=== PATIENT | male | born 1970 | race Two or more races ===

== ENCOUNTER 2020-08-31 14:08 | Inpatient (IN) | payer OTHER, SELFPAY ==
[~2020-08-31] VITALS: Ht 182.9 cm; Wt 91.7 kg
[2020-08-31] MEDS ORDERED: DEXAMETHASONE 4 MG TABLET ONE (14:56)
--- NOTE | 2020-08-31 14:58 | NUR ---
BREAK RN: PT REPORTS LEFT SIDED CHEST PAIN X2 DAYS, WORSE WITH DEEP BREATHS. 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 SINUS TACH NOTED. PT DENIES HX OF HTN. 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 REPORT GIVEN TO PRASHANTH PRIMARY RN.
[2020-08-31] MEDS ORDERED: DEXAMETHASONE 4 MG TABLET PO ONE (15:00)
[2020-08-31] MEDS ORDERED: LABETALOL 5MG/ML, 20ML ONE (15:14)
[2020-08-31] MEDS: LABETALOL 5MG/ML, 20ML IVPush PRN ×5 (15:17→16:28)
[2020-08-31 15:22] LABS: BASOPHILS % (AUTO) 1 % (0-1); EOSINOPHILS % (AUTO) 1 % (1-7); LYMPHOCYTES % (AUTO) 27 % (22-44); MEAN CORPUSCULAR HEMOGLOBIN 32.3 pg (27.5-34.5); MEAN PLATELET VOLUME 9.7 fL (7.4-10.4); MONOCYTES % (AUTO) 7 % (2-9); NEUTROPHILS % (AUTO) 64 % (42-75); PLATELET COUNT 200 x10^3/uL (130-400); RED BLOOD COUNT 5.16 x10^6/uL (4.38-5.82); RED CELL DISTRIBUTION WIDTH 12.4 % (9.4-14.8)
[2020-08-31 15:30] LABS: MD NO
[2020-08-31 15:33] LABS: ALBUMIN 4.1 g/dL (3.4-5.0); ANION GAP 5 mmol/L (5-15); CALCIUM 9.2 mg/dL (8.5-10.1); CHLORIDE 107 mmol/L (98-107)
[2020-08-31 15:38] LABS: CREATININE 1.29 mg/dL (0.7-1.3); TROPONIN I < 0.015 ng/mL (0.000-0.045)
[2020-08-31] MEDS ORDERED: LORazepam 2 MG/ML, 1ML ONE (16:12)
[2020-08-31] MEDS ORDERED: LORazepam 2 MG/ML, 1ML IVPush ONE (16:30)
[2020-08-31] MEDS ORDERED: ENALAPRILAT 1.25 MG/ML, 1ML ONE (16:57)
[2020-08-31] MEDS ORDERED: ENALAPRILAT 1.25 MG/ML, 2ML IV ONE (17:00)
[2020-08-31] MEDS ORDERED: BISACODYL 10 MG SUPP PR PRN (19:00)
[2020-08-31] MEDS ORDERED: hydrALAzine 20 MG/ML, 1ML IVPush PRN (19:00)
[2020-08-31] MEDS ORDERED: ACETAMINOPHEN 325 MG TABLET PO PRN (19:00)
[2020-08-31] MEDS ORDERED: POLYETHYLENE GLYCOL 17 GM PACKET PO PRN (19:00)
[2020-08-31] MEDS ORDERED: ONDANSETRON ODT 4 MG PO PRN (19:00)
[2020-08-31] MEDS ORDERED: morphine SULFATE 10 MG/ML, 1ML IVPush PRN (19:00)
[2020-08-31] MEDS: SODIUM CHLORIDE FLUSH 10ML SYR IVF SCH (21:32)
--- NOTE | 2020-08-31 21:32 | NUR ---
FIRST CONTACT WITH PT, VSS B/P IMPROVED SINCE MEDS. PT ATE SANDWHICH, WATER. NO CP. WILL CONTINUE TO MONITOR.
[2020-08-31 21:35] LABS: TROPONIN I < 0.015 ng/mL (0.000-0.045)
--- NOTE | 2020-08-31 23:36 | NUR ---
SLEEPING, RR EQUAL AND UNLABORED. WAITING FOR ADMIT/ HOSPITAL BED.
--- NOTE | 2020-09-01 00:16 | NUR ---
Pt awake, alert waiting for hospital bed. VSS. talking on phone to sister. No cp. No sob.
[2020-09-01] MEDS: NITROGLYCERIN 0.4 MG BOTTLE (25 TABS) SL PRN ×2 (00:30→00:35)
[2020-09-01] MEDS ORDERED: NITROGLYCERIN SINGLE TAB 0.4 MG SL ONE (00:40)
--- NOTE | 2020-09-01 00:42 | NUR ---
Upon checking up on pt he states for 20 min he has had chest pressure 4/10 but did not tell anyone. Ntg sl given, repeat stat ekg done.
--- NOTE | 2020-09-01 00:46 | NUR ---
Pt reports pain less than before ntg, b/p stabilizing. Educated pt to use call light if cp comes back. VSS.
[2020-09-01] MEDS ORDERED: ACETAMINOPHEN 325 MG TABLET ONE (00:49)
--- NOTE | 2020-09-01 00:54 | NUR ---
Pt is hyper focused on his b/p, pt has lots of anxiety. He says that his bf who he has known for years just of covid and he is very worried that he now will of covid. CP now gone, headache from ntg medicated with tylenol. I believe pt could benefit from ativan and will pass this on to my relief nurse. Pt says he wants to try watching a movie and relaxing and if he still feels anxious will try ativan.
--- NOTE | 2020-09-01 01:02 | NUR ---
BEDSIDE REPORT RECEIVED FROM ROBEL FRANKS
--- NOTE | 2020-09-01 01:10 | NUR ---
report to [facility].
--- NOTE | 2020-09-01 01:10 | NUR ---
PT SITTING UPRIGHT ON GURNEY. "I FEEL A LOT BETTER AFTER THAT PILL". NAD, VSS. NO NEEDS AT THIS TIME. WILL CONTINUE TO MONITOR.
--- NOTE | 2020-09-01 02:33 | NUR ---
PT SITTING UPRIGHT ON GURNEY, AWAITING HOSPITAL BED. CALL LIGHT AND PERSONAL BELONGINGS IN REACH. WARM BLANKETS PROVIDED.
--- NOTE | 2020-09-01 03:25 | NUR ---
PT PLACED ON HOSPITAL BED. NO NEEDS AT THIS TIME. CALL LIGHT AND PERSONAL BELONGINGS WITHIN REACH. ISOLATION PRECAUTIONS IN PLACE.
[2020-09-01 03:27] LABS: CHOLESTEROL, TOTAL 225 mg/dL (140-239); TRIGLYCERIDES 73 mg/dL (50-200); VLDL CHOLESTEROL 15 mg/dL (0-25)
[2020-09-01 03:31] LABS: CHOL/HDL RATIO 3.6; HDL CHOL % 28 % (26-37); HDL CHOLESTEROL (DIRECT) 62 mg/dL (40-60); LDL CHOLESTEROL,CALCULATED 148 mg/dL (54-169); LDL/HDL RATIO 2.4 (0.5-3.0); TROPONIN I < 0.015 ng/mL (0.000-0.045)
--- NOTE | 2020-09-01 04:12 | NUR ---
PT SUPINE ON HOSPITAL BED, SLEEPING. NAD, VSS. NO NEEDS AT THIS TIME. CALL LIGHT AND PERSONAL BELONGINGS WITHIN REACH.
--- NOTE | 2020-09-01 05:10 | NUR ---
PT SUPINE ON HOSPITAL BED, SLEEPING. NAD, VSS. NO NEEDS AT THIS TIME. CALL LIGHT AND PERSONAL BELONGINGS WITHIN REACH.
[2020-09-01] MEDS ORDERED: ASPIRIN 81 MG TABLET EC ONE (05:40)
[2020-09-01] MEDS: ASPIRIN 81 MG TABLET EC PO SCH (05:47)
--- NOTE | 2020-09-01 06:13 | NUR ---
PT SUPINE ON HOSPITAL BED SLEEPING, NAD, VSS. PT DENIES ANY NEEDS AT THIS TIME. CALL LIGHT AND PERSONAL BELONGINGS WITHIN REACH. ISOLATION PRECAUTIONS IN PLACE.
--- NOTE | 2020-09-01 06:37 | NUR ---
PER [employer] H&P, PT TO BE ON CARDIAC DIET.
--- NOTE | 2020-09-01 06:47 | NUR ---
REPORT GIVEN TO GRACIE FRANKS
--- NOTE | 2020-09-01 06:51 | NUR ---
PT REPORT FROM G[facility] [place]. PT CARE TO BE ASSUMED.
--- NOTE | 2020-09-01 07:22 | NUR ---
PT A&OX4, RESP EVEN & UNLABORED, SPEECH CLEAR, SKIN WNL, RESTING ON BED, USING CELL PHONE. STATES HE FEELS BETTER THAN YESTERDAY AND SLEPT WELL. MONITORING CONTINUING: NSR. AWAITING BREAKFAST. CALL LIGHT W/IN REACH.
--- NOTE | 2020-09-01 07:59 | NUR ---
ORAL CARE PRODUCTS PROVIDED TO PT. PT AWAITING BREAKFAST TRAY
[2020-09-01] MEDS ORDERED: AMLODIPINE 5 MG TABLET ONE (08:57)
[2020-09-01] MEDS ORDERED: SENNA/DOCUSATE TABLET ONE (08:57)
[2020-09-01] MEDS ORDERED: CHLORTHALIDONE 25 MG TABLET PO SCH (09:00)
[2020-09-01] MEDS ORDERED: AMLODIPINE 5 MG TABLET PO SCH (09:00)
[2020-09-01] MEDS: SENNA/DOCUSATE TABLET PO SCH (09:00)
[2020-09-01] MEDS: SODIUM CHLORIDE FLUSH 10ML SYR IVF SCH ×2 (09:44→20:03)
--- NOTE | 2020-09-01 09:46 | NUR ---
TASK RN: PT MED NOTED. DOCUSATE NOT GIVEN YET PHARMACY ONLY SENT 25MG NEED 50MG
--- NOTE | 2020-09-01 11:24 | NUR ---
LUNCH TRAY ORDERED.
--- NOTE | 2020-09-01 12:37 | NUR ---
RESTING QUIETLY ON BED. STILL AWAITING LUNCH TRAY; WILL CALL DIETARY Addendum: 09/01/20 at 1238 by ELIZABETH CALLED DIETARY OFFICE; NO MESSAGE LEFT ON VM
--- NOTE | 2020-09-01 13:05 | NUR ---
CALLED DIETARY; LUNCH TRAY RE-ORDERED.
--- NOTE | 2020-09-01 13:41 | NUR ---
SPOKE W/ PT RE: STAYING FOR FURTHER TESTING VS GOING HOME. PT CHOOSING TO STAY FOR TESTING; WILL UPDATE CESAR RODRIGUEZ NP. LUNCH TRADanielle DELIEVERED.
--- NOTE | 2020-09-01 14:48 | NUR ---
DRY PLASTERER AT BS.
--- NOTE | 2020-09-01 15:05 | NUR ---
CESAR RODRIGUEZ NP AWARE OF RECENT BP READINGS.
--- NOTE | 2020-09-01 16:07 | NUR ---
PT ENDORSED TO BREAK RN.
[2020-09-01] MEDS ORDERED: ENOXAPARIN 40 MG/0.4 ML SQ SCH (16:30)
--- NOTE | 2020-09-01 16:47 | NUR ---
PT CARE RESUMED.
[2020-09-01] MEDS ORDERED: ENOXAPARIN 40 MG/0.4 ML ONE (16:52)
--- NOTE | 2020-09-01 17:00 | NUR ---
RESTING ON BED, WATCHING MOVIE. LOVENOX GIVEN PER EMAR.
--- NOTE | 2020-09-01 17:20 | NUR ---
DINNER TRAY ORDERED.
--- NOTE | 2020-09-01 17:25 | NUR ---
ROOM ASSIGNMENT RECEIVED; DINNER TRAY CANCELLED
--- NOTE | 2020-09-01 17:29 | NUR ---
PT REPORT TO GOLDEN VALDEZ FOR ROOM 488
[2020-09-01 19:22] VITALS: BP 179/111
[2020-09-01 19:32] VITALS: BP 179/111
[2020-09-01] MEDS: LISINOPRIL 20 MG TABLET PO SCH (20:03)
[2020-09-02 00:47] VITALS: BP 134/75
[2020-09-02] MEDS: ASPIRIN 81 MG TABLET EC PO SCH (05:49)
[2020-09-02 06:24] LABS: ANION GAP 5 mmol/L (5-15); CALCIUM 8.7 mg/dL (8.5-10.1); CHLORIDE 106 mmol/L (98-107); CREATININE 1.26 mg/dL (0.7-1.3)
[2020-09-02 06:31] LABS: BASOPHILS % (AUTO) 1 % (0-1); EOSINOPHILS % (AUTO) 1 % (1-7); LYMPHOCYTES % (AUTO) 30 % (22-44); MEAN CORPUSCULAR HEMOGLOBIN 32.5 pg (27.5-34.5); MEAN CORPUSCULAR HGB CONC 34.7 g/dL (33.2-36.2); MEAN PLATELET VOLUME 10.1 fL (7.4-10.4); MONOCYTES % (AUTO) 7 % (2-9); NEUTROPHILS % (AUTO) 61 % (42-75); PLATELET COUNT 187 x10^3/uL (130-400); RED BLOOD COUNT 4.93 x10^6/uL (4.38-5.82); RED CELL DISTRIBUTION WIDTH 12.7 % (9.4-14.8)
[2020-09-02 06:54] LABS: MD NO
[2020-09-02] MEDS: SENNA/DOCUSATE TABLET PO SCH (09:00)
[2020-09-02] MEDS ORDERED: AMLODIPINE 5 MG TABLET PO SCH (09:00)
[2020-09-02] MEDS ORDERED: LISI-170 PO (09:27)
[2020-09-02] MEDS ORDERED: ATOR10TA9 PO (09:27)
[2020-09-02] MEDS ORDERED: ASPI81TA45 PO (09:27)
[2020-09-02 10:10] VITALS: BP 156/104
[2020-09-02] MEDS: LISINOPRIL 20 MG TABLET PO SCH (10:33)
[2020-09-02] MEDS: SODIUM CHLORIDE FLUSH 10ML SYR IVF SCH (10:34)
== END 2020-09-02 13:13 | disposition home or self-care (01) | DRG 305 ==
LOC: ED 15:21 → EDIP 17:30 → 4EST 09-01 17:45
PROVIDERS: ADMIT Internal Medicine; ATTEND Internal Medicine
DX: I16.0 Hypertensive urgency (principal); E78.5 Hyperlipidemia, unspecified; F41.9 Anxiety disorder, unspecified; I10 Essential (primary) hypertension; Z20.828 Contact with and (suspected) exposure to other viral communicable diseases; Z79.82 Long term (current) use of aspirin; Z79.899 Other long term (current) drug therapy; Z82.49 Family history of ischemic heart disease and other diseases of the circulatory system
CPT/HCPCS: 36415; 71045; 80048; 80061; 82040; 84484; 85025; 93005; 93306; 96365; 99291; G0378; J1650; J2060; U0003